=== PATIENT | male | born 1925 | race Caucasian/White ===

== ENCOUNTER 2016-10-22 11:24 | Outpatient (CLI) | payer MEDICARE, BC ==
[2016-10-22 18:23] LABS: Hemoglobin A1c 5.3 % (4.0-6.0)
[2016-10-22 21:38] LABS: Hematocrit 41.5 % (42.0-52.0); Mean Platelet Volume 4.8 fL (7.4-10.4); Neutrophil 14 % (42-75); Reactive Lymphocytes 6 % (0-10); Red Blood Cell (RBC) Count 4.39 mill/uL (4.70-6.10); White Blood Cell (WBC) Count 17.3 thou/uL (4.8-10.8)
== END 2016-10-22 11:25 ==
LOC: LABLEX 11:24
PROVIDERS: ATTEND Family Medicine
DX: C91.11 Chronic lymphocytic leukemia of B-cell type in remission (principal); N40.1 Benign prostatic hyperplasia with lower urinary tract symptoms; R32 Unspecified urinary incontinence; R73.09 Other abnormal glucose
CPT/HCPCS: 36415; 83036; 84153; 85025

== ENCOUNTER 2016-10-23 14:50 | Outpatient (CLI) | payer MEDICARE, BC | END 2016-10-23 14:51 | LOC: LABLEX 14:50 | PROVIDERS: ATTEND Family Medicine | DX: C91.11 Chronic lymphocytic leukemia of B-cell type in remission (principal); N40.1 Benign prostatic hyperplasia with lower urinary tract symptoms; R32 Unspecified urinary incontinence | CPT/HCPCS: 87086 ==